=== PATIENT | female | born 2000 | race Caucasian/White ===

== ENCOUNTER 2018-06-07 01:19 | Emergency (ER) | payer BC ==
[2018-06-07] MEDS ORDERED: ONDANSETRON 4 MG/2 ML VIAL ONE (01:30)
[2018-06-07] MEDS ORDERED: NS 1,000 ML IV ONE ×2 (01:39→02:46)
[2018-06-07] MEDS ORDERED: ONDANSETRON 4 MG/2 ML VIAL IVP ONE (01:39)
[2018-06-07] MEDS ORDERED: IBUPROFEN 600 MG TAB PO ONE (02:04)
--- NOTE | 2018-06-07 02:04 | EDPHY ---
H & P Stated Complaint: Fever, vertigo, vomiting, dizzy, nausea Time Seen by Provider: 06/07/18 01:32 HPI/ROS: Chief Complaint: Fever, vertigo, nausea HPI: Healthy 17-year-old female presenting with lightheadedness and fever which began 4-5 hours ago. She describes lightheadedness particular she stands. She had some nausea and vomited once. No diarrhea or constipation. No cough. Does have a mild headache. No neck pain or stiffness. No known ill contacts. No urinary urgency or frequency. She is on a continuous oral contraceptive. Does not recall last menstrual cycle. No skin rash. No sore throat. No cough. No shortness of breath. ROS: 10 systems were reviewed and were negative except those elements noted in the HPI. PMH: Denies Social History: No smoking, occasional alcohol Family History: non-contributory Physical Exam: Gen: Awake, Alert, No Distress HEENT: Ears: Normal Nose: no rhinorrhea Eyes: PERRLA, EOMI Mouth: Dry mucous membranes Neck: Supple, no JVD, no meningismus Chest: nontender, lungs clear to auscultation Heart: S1, S2 normal, no murmur Abd: Soft, non-tender, no guarding Back: no CVA tenderness, no midline tenderness Ext: no edema, non-tender Skin: no rash Neuro: CN II-XII intact, Sensation grossly intact, Strength 5/5 in bilateral upper and lower extremities - Personal History LMP (Females 10-55): Irregular Current Tetanus Diphtheria and Acellular Pertussis (TDAP): Yes - Medical/Surgical History Hx Asthma: No Hx Chronic Respiratory Disease: No Hx Diabetes: No Hx Cardiac Disease: No Hx Renal Disease: No Hx Cirrhosis: No Hx Alcoholism: No Hx HIV/AIDS: No Hx Splenectomy or Spleen Trauma: No Other PMH: Depression, Anxiety - Social History Smoking Status: Never smoked Constitutional: Initial Vital Signs Temperature (C) 38.6 C H 06/07/18 01:20 Heart Rate 120 H 06/07/18 01:20 Respiratory Rate 19 18 01:20 Blood Pressure 120/77 06/07/18 01:20 O2 Sat (%) 95 06/07/18 01:20 O2 Delivery Mode Room Air Allergies/Adverse Reactions: No Known Allergies Allergy (Unverified 06/07/18 01:24) Home Medications: Medication Instructions Recorded NK [No Known Home Meds] 06/07/18 Medical Decision Making ED Course/Re-evaluation: Patient is improved after fluids, Tylenol, Motrin. She is tolerating p.o.. Fevers resolved. No nausea or vomiting. Will discharge continuing antipyretics , fluids, bedrest, follow up at [facility]. No evidence of acute bacteremia. Symptoms consistent with viral illness. - Data Points Laboratory Results: Laboratory Results 06/07/18 01:35 06/07/18 06/07/18 03:10 01:35 Sodium 137 mEq/L mEq/L (135-145) Potassium 4.4 mEq/L mEq/L (3.5-5.2) Chloride 104 mEq/L mEq/L (97-110) Carbon Dioxide 22 mEq/l mEq/l (22-31) Anion Gap 11 mEq/L mEq/L (6-14) BUN 14 mg/dL mg/dL (7-23) Creatinine 0.7 mg/dL mg/dL (0.6-1.0) Estimated GFR > 60 Glucose 105 mg/dL H mg/dL (70-100) Calcium 9.5 mg/dL mg/dL (8.5-10.4) Urine Color PALE YELLOW Urine Appearance CLEAR Urine pH 7.0 (5.0-7.5) Ur Specific Edgar 1.010 (1.002-1.030) Urine Protein NEGATIVE (NEGATIVE) Urine Ketones NEGATIVE (NEGATIVE) Urine Blood 1+ H (NEGATIVE) Urine Nitrate NEGATIVE (NEGATIVE) Urine Bilirubin NEGATIVE (NEGATIVE) Urine Urobilinogen NEGATIVE EU EU (0.2-1.0) Ur Leukocyte Esterase NEGATIVE (NEGATIVE) Urine RBC 1-3 /hpf /hpf (0-3) Urine WBC 1-3 /hpf /hpf (0-3) Ur Epithelial Cells TRACE /lpf /lpf (NONE-1+) Urine Mucus TRACE /lpf /lpf (NONE-1+) Urine Glucose NEGATIVE (NEGATIVE) Medications Given: Discontinued Medications Acetaminophen (Tylenol) 1,000 mg PO EDNOW ONE Stop: 06/07/18 03:09 Last Admin: 06/07/18 03:14 Dose: 1,000 mg Sodium Chloride (Ns) 1,000 mls @ 0 mls/hr IV EDNOW ONE; Wide Open PRN Reason: Protocol Stop: 06/07/18 01:40 Last Admin: 06/07/18 01:40 Dose: 1,000 mls Sodium Chloride (Ns) 1,000 mls @ 0 mls/hr IV EDNOW ONE; Wide Open PRN Reason: Protocol Stop: 06/07/18 02:47 Last Admin: 06/07/18 02:49 Dose: 1,000 mls Ibuprofen (Motrin) 600 mg PO EDNOW ONE Stop: 06/07/18 02:05 Last Admin: 06/07/18 02:11 Dose: 600 mg Ondansetron HCl (Zofran) 4 mg IVP EDNOW ONE Stop: 06/07/18 01:40 Last Admin: 06/07/18 01:40 Dose: 4 mg Departure - Departure Disposition: Home, Routine, Self-Care Clinical Impression: Viral syndrome, Fever Condition: Good Instructions: Viral Syndrome (ED), Fever in Adults (ED), Ondansetron (By mouth) Additional Instructions: Alternate acetaminophen (1000 mg) with ibuprofen (400 mg) every 4 hours as needed for fevers, chills, aches or pain. Drink plenty of fluids, Pedialyte is the best. You may take Zofran for nausea or vomiting. Follow up with student [facility] in 2-3 days if symptoms are not improving. Referrals: SANJUANA Cortez,. [Clinic] - As per Instructions
[2018-06-07] MEDS ORDERED: ACETAMINOPHEN 500 MG TAB PO ONE (03:08)
[2018-06-07] MEDS ORDERED: ONDANSETRON 4MG PREPACK#2 BTL TAKEHOME ONE (04:06)
[2018-06-07 04:17] VITALS: BP 118/67
== END 2018-06-07 04:21 | disposition home or self-care (01) ==
DX: B34.9 Viral infection, unspecified (principal); E86.9 Volume depletion, unspecified
CPT/HCPCS: 96374; J2405